=== PATIENT | female | born 1955 | race Caucasian/White ===

== ENCOUNTER → 2021-03-27 | Outpatient (CLI) | payer MEDICARE, OTHER ==
[~2021-03-27] MED LIST: METHACHOLINE KIT (J7674) INH ONE
--- NOTE | 2021-03-27 08:15 | PFTRPT ---
Site: [facility], [address] [place], [address] ID: [id number] Name: JOSIE BONILLA Visit Date: 03/27/2021 Second ID: [id number] Referring Doctor: Monica Carrillo Reviewing Doctor: Cedric Shelby MD Tower Cleaner: Ata POPE RRT Age: 65 : 1955 Sex: Female Race: Height: 61.00 Inches Weight: 201.00 Lbs BSA: 1.89 Order IDs: [id number] Requested Test(s): <RESP-PFT.METH CHAL> Diagnosis: R06.02 of albuterol for post bronchodilator. Review Status: Not Reviewed Pre-Bronch Post-Bronch Pred Actual %Pred Actual %Chng SPIROMETRY FVC (L) 2.74 2.04 74 2.06 1 FEV1 (L) 2.08 1.50 72 1.49 FEV1/FVC (%) 77 74 96 72 -2 FEF 25% (L/sec) 4.50 3.13 69 2.88 -7 FEF 50% (L/sec) 3.43 1.40 40 1.29 -7 FEF 75% (L/sec) 1.05 0.41 39 0.50 21 FEF 25-75% (L/sec) 1.87 1.08 57 1.06 -1 FEF Max (L/sec) 5.41 4.29 79 4.25 FIVC (L) 2.01 2.25 12 FIF 50% (L/sec) 3.46 3.31 95 2.65 -19 FIF Max (L/sec) 3.32 2.65 -20 Expiratory Time (sec) 5.77 6.62 14 Back Extrap Vol (L) 0.06 0.05 -20 Time To FEFmax (sec) 0.073 0.066 -9
== END ==
LOC: M CARPUL 07:25
PROVIDERS: ATTEND Nurse Practitioner Adult Health
DX: R06.02 Shortness of breath (principal)
CPT/HCPCS: 94070; 95070; J7674

== ENCOUNTER → 2021-04-24 | Outpatient (CLI) | payer MEDICARE, OTHER ==
[~2021-04-24] MED LIST changes: +AMLO1TAB24 PO; +ARNU1INH INH; +ATOR1TAB21 PO; +FAMO40TA3 PO; +HYDR-3490 PO; +MAGN400T33 PO; +MELO15TA28 PO; -METHACHOLINE KIT (J7674) INH ONE; +OMEP-173 PO
== END ==
LOC: M LABSMTC 09:40
PROVIDERS: ATTEND Anesthesiology
DX: Z01.812 Encounter for preprocedural laboratory examination (principal); Z20.822 Contact with and (suspected) exposure to COVID-19

== ENCOUNTER 2021-04-29 11:43 | Day surgery (SDC) | payer MEDICARE ==
[~2021-04-29] VITALS: Ht 154.9 cm; Wt 91.2 kg
[~2021-04-29 11:43] MED LIST changes: +NS 1,000 ML IV ONE
[2021-04-29] MEDS ORDERED: propofoL 200 MG/20 ML VIAL As Ordered ONE (12:28)
[2021-04-29] MEDS ORDERED: LIDOCAINE 2% 100MG/5ML SDV (FOR ANES.) As Ordered ONE (12:28)
[2021-04-29] MEDS ORDERED: fentaNYL 100 MCG/2 ML INJECTION (J3010) As Ordered ONE ×2 (12:49→13:11)
[2021-04-29 13:42] VITALS: BP 163/76
== END 2021-04-29 13:46 | disposition home or self-care (01) ==
LOC: M SDC 11:43
PROVIDERS: ATTEND Internal Medicine Gastroenterology
DX: K21.00 Gastro-esophageal reflux disease with esophagitis, without bleeding (principal); K44.9 Diaphragmatic hernia without obstruction or gangrene; K29.70 Gastritis, unspecified, without bleeding; K31.89 Other diseases of stomach and duodenum; R10.13 Epigastric pain; R13.10 Dysphagia, unspecified; I10 Essential (primary) hypertension; Z90.710 Acquired absence of both cervix and uterus; Z88.0 Allergy status to penicillin; Z79.899 Other long term (current) drug therapy
CPT/HCPCS: 43239; 88305; J3010

== ENCOUNTER 2021-05-20 08:35 | Outpatient (RCR) | payer MEDICARE ==
[~2021-05-20 08:35] MED LIST changes: -NS 1,000 ML IV ONE
== END 2021-05-26 ==
LOC: M ST 08:35
PROVIDERS: ATTEND Otolaryngology
DX: R49.0 Dysphonia (principal)

== ENCOUNTER → 2021-05-23 | Outpatient (CLI) | payer MEDICARE ==
[~2021-05-23] MED LIST changes: +E-Z-GAS II EFFERVESCENT PACKET (SODIUM BICARB./CITRIC ACID/SIMETHICONE) As Ordered ONE; +E-Z-HD 98% w/w 340GM SUSP BTL As Ordered ONE; +E-Z-PAQUE 96% w/w SUSP 176GM BTL As Ordered ONE
== END ==
LOC: M RAD 07:26
PROVIDERS: ATTEND Otolaryngology
DX: R49.0 Dysphonia (principal); K21.9 Gastro-esophageal reflux disease without esophagitis; K44.9 Diaphragmatic hernia without obstruction or gangrene

== ENCOUNTER → 2021-06-03 | Outpatient (CLI) | payer MEDICARE ==
[~2021-06-03] MED LIST changes: +BARIUM SULFATE 700 MG TABLET (E-Z-DISK) As Ordered ONE; -E-Z-GAS II EFFERVESCENT PACKET (SODIUM BICARB./CITRIC ACID/SIMETHICONE) As Ordered ONE; -E-Z-HD 98% w/w 340GM SUSP BTL As Ordered ONE; +VARIBAR NECTAR 40% w/v 240ML SUSP BTL As Ordered ONE; +VARIBAR PUDDING 40% w/v 230ML TUBE As Ordered ONE
== END ==
LOC: M RAD 10:19
PROVIDERS: ATTEND Otolaryngology
DX: R13.12 Dysphagia, oropharyngeal phase (principal); R49.9 Unspecified voice and resonance disorder

== ENCOUNTER → 2021-06-05 | Outpatient (CLI) | payer MEDICARE ==
[~2021-06-05] MED LIST changes: -BARIUM SULFATE 700 MG TABLET (E-Z-DISK) As Ordered ONE; -E-Z-PAQUE 96% w/w SUSP 176GM BTL As Ordered ONE; -VARIBAR NECTAR 40% w/v 240ML SUSP BTL As Ordered ONE; -VARIBAR PUDDING 40% w/v 230ML TUBE As Ordered ONE
== END ==
LOC: M RAD 08:10
PROVIDERS: ATTEND Otolaryngology
DX: R49.0 Dysphonia (principal); I65.23 Occlusion and stenosis of bilateral carotid arteries; H74.92 Unspecified disorder of left middle ear and mastoid

== ENCOUNTER 2021-06-25 12:17 | Outpatient (RCR) | payer MEDICARE | END 2021-06-26 | LOC: M ST 12:17 | PROVIDERS: ATTEND Otolaryngology | DX: R49.0 Dysphonia (principal) ==

== ENCOUNTER 2021-07-14 12:50 | Outpatient (RCR) | payer MEDICARE | END 2021-07-26 | LOC: M ST 12:50 | PROVIDERS: ATTEND Otolaryngology | DX: R49.0 Dysphonia (principal) ==

== ENCOUNTER 2022-07-30 22:10 | Inpatient (IN) | payer MEDICARE ==
[~2022-07-30] VITALS: Ht 154.9 cm; Wt 73.2 kg
[2022-07-31] VITALS (14 sets, daily range): BP systolic 98–135; BP diastolic 55–87
[2022-07-31] MEDS ORDERED: NS 500 ML IV ONE (01:00)
[2022-07-31] MEDS ORDERED: NS 1,000 ML IV SCH (01:00)
[2022-07-31 02:39] LABS: ABG BASE EXCESS -2.7 (-2.0-2.0); ABG HCO3 21.6 MMOL/L (22.0-26.0); ABG O2 SATURATION 98.9 % (95.0-99.0); ABG PARTIAL PRESSURE CO2 35.9 mmHg (35.0-45.0); ABG PARTIAL PRESSURE O2 130.9 mmHg (75.0-100.0); ABG STANDARD HCO3 22.3 MMOL/L. (22.0-26.0); ABG TOTAL CO2 22.7 MMOL/L (23.0-31.0); ABG pH (ARTERIAL) 7.398 UNITS (7.350-7.450)
[2022-07-31] MEDS ORDERED: ALBUTEROL SULFATE 2.5MG/0.5ML INH NEB SOLN NEB PRN (02:40)
[2022-07-31] MEDS: ALBUTEROL SULFATE 2.5MG/0.5ML INH NEB SOLN NEB SCH ×6 (03:45→23:12)
[2022-07-31 06:27] LABS: BLOOD UREA NITROGEN 31 MG/DL (9-23); CALCIUM LEVEL 8.2 MG/DL (8.3-10.6); CARBON DIOXIDE LEVEL 23 MMOL/L (20-31); CHLORIDE LEVEL 107 MMOL/L (98-107); CREATININE FOR GFR 0.73 MG/DL (0.55-1.30); GLOMERULAR FILTRATION RATE > 60.0 (>45); GLUCOSE, FASTING 156 MG/DL (74-106); POTASSIUM SERUM 4.1 MMOL/L (3.5-5.1); SODIUM LEVEL 142 MMOL/L (136-145)
[2022-07-31] MEDS: PANTOPRAZOLE 40MG VIAL IV SCH (08:51)
[2022-07-31] MEDS ORDERED: APIXABAN 5 MG TAB (ELIQUIS) PO SCH (09:00)
[2022-07-31] MEDS: ATORVASTATIN 20 MG TAB PEG SCH (09:00)
[2022-07-31] MEDS ORDERED: ATORVASTATIN 20 MG TAB PO SCH (09:00)
[2022-07-31 09:24] LABS: ABG BASE EXCESS -1.1 (-2.0-2.0); ABG O2 SATURATION 93.8 % (95.0-99.0); ABG PARTIAL PRESSURE CO2 36.3 mmHg (35.0-45.0); ABG PARTIAL PRESSURE O2 71.9 mmHg (75.0-100.0); ABG STANDARD HCO3 23.5 MMOL/L. (22.0-26.0); ABG TOTAL CO2 24.1 MMOL/L (23.0-31.0)
[2022-07-31] MEDS ORDERED: NUED20CA PO (10:32)
[2022-07-31] MEDS ORDERED: EDAR105O PO (10:32)
[2022-07-31] MEDS ORDERED: MUPI2OI TOP (10:32)
[2022-07-31] MEDS ORDERED: POTA1TAB23 PO (10:32)
[2022-07-31] MEDS ORDERED: RILU1TAB2 PO (10:32)
[2022-07-31] MEDS ORDERED: NYST1POW9 TOP (10:32)
[2022-07-31] MEDS ORDERED: ELIQ5TAB PO (10:32)
[2022-07-31] MEDS ORDERED: VENTAER INH (10:33)
[2022-07-31] MEDS ORDERED: HOME MED LIST COMPLETE! XX SCH (10:35)
[2022-07-31 11:18] LABS: BASO % 0.1 % (0.0-1.0); EOS % 0.1 % (0.0-3.0); HEMATOCRIT 38.3 % (36.0-47.0); LYMPH # 0.3 10^3/uL (1.5-5.0); LYMPH % 2.4 % (24.0-44.0); MEAN CORPUSCULAR HEMOGLOBIN 33.4 pg (27.0-33.0); MEAN CORPUSCULAR HGB CONC 33.9 g/dl (32.0-36.5); MEAN CORPUSCULAR VOLUME 98.5 fl (80.0-96.0); MONO # 0.3 10^3/uL (0.0-0.8); MONO % 2.9 % (2.0-8.0); NEUTROPHILS # 10.8 10^3/uL (1.5-8.5); NEUTROPHILS % 94.1 % (36.0-66.0); PLATELET COUNT, AUTOMATED 318 10^3/uL (150-450); RED BLOOD COUNT 3.89 10^6/uL (4.00-5.40); WHITE BLOOD COUNT 11.4 10^3/uL (4.0-10.0)
[2022-07-31] MEDS ORDERED: ISOVUE-370 76% 100ML VIAL As Ordered ONE (11:22)
[2022-07-31 11:35] LABS: ABG BASE EXCESS -3.1 (-2.0-2.0); ABG HCO3 21.8 MMOL/L (22.0-26.0); ABG O2 LITER FLOW 100; ABG O2 SATURATION 90.5 % (95.0-99.0); ABG PARTIAL PRESSURE CO2 38.4 mmHg (35.0-45.0); ABG PARTIAL PRESSURE O2 62.5 mmHg (75.0-100.0); ABG STANDARD HCO3 21.8 MMOL/L. (22.0-26.0); ABG pH (ARTERIAL) 7.372 UNITS (7.350-7.450)
[2022-07-31] MEDS ORDERED: AZTREONAM 1 GM in D5W MINI-BAG PLUS 50 ML IV SCH (12:30)
[2022-07-31] MEDS: NYSTATIN 100,000 UNITS/GM TOPICAL PWD 15GM TOP SCH ×2 (13:35→21:16)
[2022-07-31] MEDS: AZTREONAM 2 GM in D5W MINI-BAG PLUS 100 ML IV SCH ×2 (14:30→21:15)
[2022-07-31] MEDS: DOXYCYCLINE HYCLATE 100 MG in D5W MINI-BAG PLUS 100 ML IV SCH (15:32)
[2022-07-31] MEDS: ACETYLCYSTEINE 20% 4 ML VIAL (200MG/ML) INH SCH ×2 (16:54→23:11)
[2022-07-31] MEDS: APIXABAN 5 MG TAB (ELIQUIS) PEG SCH (21:15)
[2022-08-01] VITALS (12 sets, daily range): BP systolic 97–130; BP diastolic 55–84
[2022-08-01] MEDS: DOXYCYCLINE HYCLATE 100 MG in D5W MINI-BAG PLUS 100 ML IV SCH ×2 (02:49→14:36)
[2022-08-01] MEDS: ALBUTEROL SULFATE 2.5MG/0.5ML INH NEB SOLN NEB SCH ×5 (03:06→19:23)
[2022-08-01 04:22] LABS: BASO % 0.1 % (0.0-1.0); HEMATOCRIT 34.8 % (36.0-47.0); HEMOGLOBIN 11.5 g/dl (12.0-15.5); LYMPH # 0.6 10^3/uL (1.5-5.0); LYMPH % 4.6 % (24.0-44.0); MEAN CORPUSCULAR VOLUME 99.7 fl (80.0-96.0); MONO # 1.5 10^3/uL (0.0-0.8); MONO % 10.8 % (2.0-8.0); NEUTROPHILS # 11.3 10^3/uL (1.5-8.5); NEUTROPHILS % 84.1 % (36.0-66.0); PLATELET COUNT, AUTOMATED 236 10^3/uL (150-450); RED BLOOD COUNT 3.49 10^6/uL (4.00-5.40); WHITE BLOOD COUNT 13.4 10^3/uL (4.0-10.0)
[2022-08-01 04:46] LABS: BLOOD UREA NITROGEN 33 MG/DL (9-23); CALCIUM LEVEL 9.1 MG/DL (8.3-10.6); CARBON DIOXIDE LEVEL 27 MMOL/L (20-31); CHLORIDE LEVEL 106 MMOL/L (98-107); CREATININE FOR GFR 0.71 MG/DL (0.55-1.30); GLOMERULAR FILTRATION RATE > 60.0 (>45); GLUCOSE, FASTING 125 MG/DL (74-106); MAGNESIUM LEVEL 1.6 MG/DL (1.8-2.4); POTASSIUM SERUM 3.3 MMOL/L (3.5-5.1); SODIUM LEVEL 141 MMOL/L (136-145)
[2022-08-01] MEDS: MAG SULF 1GM/100ML (MAG RUN) 1 GM in IV 1 EA IV SCH ×2 (05:28→06:16)
[2022-08-01] MEDS: AZTREONAM 2 GM in D5W MINI-BAG PLUS 100 ML IV SCH ×3 (05:28→21:25)
[2022-08-01] MEDS: ACETYLCYSTEINE 20% 4 ML VIAL (200MG/ML) INH SCH ×3 (07:28→15:39)
[2022-08-01] MEDS: KCL 10MEQ/100ML SWI (KRUN) 10 MEQ in IV 1 EA IV SCH ×2 (07:38→08:50)
[2022-08-01] MEDS: PANTOPRAZOLE 40MG VIAL IV SCH (08:49)
[2022-08-01] MEDS: APIXABAN 5 MG TAB (ELIQUIS) PEG SCH ×2 (08:50→20:23)
[2022-08-01] MEDS: ATORVASTATIN 20 MG TAB PEG SCH (08:50)
[2022-08-01] MEDS: NYSTATIN 100,000 UNITS/GM TOPICAL PWD 15GM TOP SCH ×2 (08:50→20:24)
[2022-08-01] MEDS: RILUZOLE 50 MG PEG SCH ×2 (14:36→20:23)
[2022-08-02] VITALS (9 sets, daily range): BP systolic 91–137; BP diastolic 55–79
[2022-08-02] MEDS: ACETYLCYSTEINE 20% 4 ML VIAL (200MG/ML) INH SCH ×2 (00:22→07:27)
[2022-08-02] MEDS: ALBUTEROL SULFATE 2.5MG/0.5ML INH NEB SOLN NEB SCH ×7 (00:22→23:43)
[2022-08-02] MEDS: DOXYCYCLINE HYCLATE 100 MG in D5W MINI-BAG PLUS 100 ML IV SCH ×2 (02:54→14:38)
[2022-08-02 05:36] LABS: BASO % 0.2 % (0.0-1.0); EOS % 0.3 % (0.0-3.0); HEMATOCRIT 32.5 % (36.0-47.0); HEMOGLOBIN 10.5 g/dl (12.0-15.5); LYMPH # 0.6 10^3/uL (1.5-5.0); LYMPH % 6.4 % (24.0-44.0); MEAN CORPUSCULAR HEMOGLOBIN 32.6 pg (27.0-33.0); MEAN CORPUSCULAR HGB CONC 32.3 g/dl (32.0-36.5); MEAN CORPUSCULAR VOLUME 100.9 fl (80.0-96.0); MONO # 1.2 10^3/uL (0.0-0.8); MONO % 11.9 % (2.0-8.0); NEUTROPHILS # 8.1 10^3/uL (1.5-8.5); NEUTROPHILS % 80.8 % (36.0-66.0); PLATELET COUNT, AUTOMATED 234 10^3/uL (150-450); RED BLOOD COUNT 3.22 10^6/uL (4.00-5.40)
[2022-08-02] MEDS: AZTREONAM 2 GM in D5W MINI-BAG PLUS 100 ML IV SCH ×3 (06:15→21:12)
[2022-08-02 06:19] LABS: BLOOD UREA NITROGEN 42 MG/DL (9-23); CALCIUM LEVEL 8.8 MG/DL (8.3-10.6); CARBON DIOXIDE LEVEL 31 MMOL/L (20-31); CHLORIDE LEVEL 105 MMOL/L (98-107); CREATININE FOR GFR 0.63 MG/DL (0.55-1.30); GLOMERULAR FILTRATION RATE > 60.0 (>45); GLUCOSE, FASTING 144 MG/DL (74-106); MAGNESIUM LEVEL 1.7 MG/DL (1.8-2.4); POTASSIUM SERUM 2.8 MMOL/L (3.5-5.1); SODIUM LEVEL 141 MMOL/L (136-145)
[2022-08-02 06:19] LABS: ABG BASE EXCESS -0.3 (-2.0-2.0); ABG HCO3 24.7 MMOL/L (22.0-26.0); ABG O2 SATURATION 99.3 % (95.0-99.0); ABG PARTIAL PRESSURE CO2 41.5 mmHg (35.0-45.0); ABG PARTIAL PRESSURE O2 143.9 mmHg (75.0-100.0); ABG STANDARD HCO3 24.3 MMOL/L. (22.0-26.0); ABG TOTAL CO2 25.9 MMOL/L (23.0-31.0); ABG pH (ARTERIAL) 7.392 UNITS (7.350-7.450)
[2022-08-02] MEDS ORDERED: MAG SULF 1GM/100ML (MAG RUN) 1 GM in IV 1 EA IV ONE (07:00)
[2022-08-02] MEDS: KCL 10MEQ/100ML SWI (KRUN) 10 MEQ in IV 1 EA IV SCH ×4 (07:34→11:14)
[2022-08-02] MEDS: RILUZOLE 50 MG PEG SCH ×2 (08:48→21:13)
[2022-08-02] MEDS: APIXABAN 5 MG TAB (ELIQUIS) PEG SCH ×2 (08:48→21:13)
[2022-08-02] MEDS: PANTOPRAZOLE 40MG VIAL IV SCH (08:48)
[2022-08-02] MEDS: ATORVASTATIN 20 MG TAB PEG SCH (08:48)
[2022-08-02] MEDS: NYSTATIN 100,000 UNITS/GM TOPICAL PWD 15GM TOP SCH ×2 (08:49→21:13)
[2022-08-02] MEDS: SODIUM CHLORIDE HYPERTONIC 3% 15ML NEB SOL INH SCH ×2 (15:32→23:44)
[2022-08-03] VITALS: BP 118/63
[2022-08-03] MEDS: DOXYCYCLINE HYCLATE 100 MG in D5W MINI-BAG PLUS 100 ML IV SCH (02:47)
[2022-08-03] MEDS: ALBUTEROL SULFATE 2.5MG/0.5ML INH NEB SOLN NEB SCH ×3 (03:48→11:17)
[2022-08-03 04:00] VITALS: BP 98/54
[2022-08-03 05:33] LABS: BASO % 0.3 % (0.0-1.0); EOS # 0.1 10^3/uL (0.0-0.5); EOS % 0.9 % (0.0-3.0); HEMATOCRIT 34.6 % (36.0-47.0); HEMOGLOBIN 11.3 g/dl (12.0-15.5); LYMPH # 0.6 10^3/uL (1.5-5.0); LYMPH % 5.5 % (24.0-44.0); MEAN CORPUSCULAR HEMOGLOBIN 32.6 pg (27.0-33.0); MEAN CORPUSCULAR HGB CONC 32.7 g/dl (32.0-36.5); MEAN CORPUSCULAR VOLUME 99.7 fl (80.0-96.0); MONO # 1.1 10^3/uL (0.0-0.8); MONO % 10.6 % (2.0-8.0); NEUTROPHILS # 8.2 10^3/uL (1.5-8.5); NEUTROPHILS % 82.1 % (36.0-66.0); PLATELET COUNT, AUTOMATED 235 10^3/uL (150-450); RED BLOOD COUNT 3.47 10^6/uL (4.00-5.40)
[2022-08-03] MEDS: AZTREONAM 2 GM in D5W MINI-BAG PLUS 100 ML IV SCH (05:33)
[2022-08-03 06:19] LABS: BLOOD UREA NITROGEN 43 MG/DL (9-23); CALCIUM LEVEL 9.1 MG/DL (8.3-10.6); CARBON DIOXIDE LEVEL 32 MMOL/L (20-31); CHLORIDE LEVEL 103 MMOL/L (98-107); CREATININE FOR GFR 0.56 MG/DL (0.55-1.30); GLOMERULAR FILTRATION RATE > 60.0 (>45); GLUCOSE, FASTING 135 MG/DL (74-106); MAGNESIUM LEVEL 1.6 MG/DL (1.8-2.4); POTASSIUM SERUM 3.8 MMOL/L (3.5-5.1); SODIUM LEVEL 140 MMOL/L (136-145)
[2022-08-03] MEDS: SODIUM CHLORIDE HYPERTONIC 3% 15ML NEB SOL INH SCH (07:26)
[2022-08-03 08:00] VITALS: BP 161/82
[2022-08-03] MEDS ORDERED: EDARAVONE PEG SCH (09:00)
[2022-08-03] MEDS: MAG SULF 1GM/100ML (MAG RUN) 1 GM in IV 1 EA IV SCH ×2 (09:17→10:25)
[2022-08-03] MEDS: ATORVASTATIN 20 MG TAB PEG SCH (10:22)
[2022-08-03] MEDS: NYSTATIN 100,000 UNITS/GM TOPICAL PWD 15GM TOP SCH (10:22)
[2022-08-03] MEDS: APIXABAN 5 MG TAB (ELIQUIS) PEG SCH (10:23)
[2022-08-03] MEDS: PANTOPRAZOLE 40MG VIAL IV SCH (10:23)
[2022-08-03] MEDS: RILUZOLE 50 MG PEG SCH (10:23)
[2022-08-03] MEDS ORDERED: LOPERAMIDE 2 MG CAPLET PO ONE (11:00)
[2022-08-03 12:00] VITALS: BP 137/70
[2022-08-03] MEDS ORDERED: MORPHINE 4 MG/ML 1ML VIAL IV ONE (14:35)
[2022-08-03] MEDS ORDERED: LORazepam 2 MG/ML 1ML VIAL IV ONE (14:35)
[2022-08-03] MEDS ORDERED: LORazepam 2 MG/ML 1ML VIAL IV PRN (14:35)
[2022-08-03] MEDS ORDERED: MORPHINE SULF IN 0.9% NACL 100 MG in IV 1 EA IV SCH ×2 (15:00)
[2022-08-03] MEDS ORDERED: SCOPOLAMINE 1MG TRANSDERMAL PATCH TOP PRN (16:25)
== END 2022-08-04 08:45 | disposition expired | DRG 56 ==
LOC: M ICU 07-31 00:22
PROVIDERS: ADMIT Internal Medicine; ATTEND Internal Medicine
DX: G12.21 Amyotrophic lateral sclerosis (principal); J96.21 Acute and chronic respiratory failure with hypoxia; J69.0 Pneumonitis due to inhalation of food and vomit; J15.6 Pneumonia due to other Gram-negative bacteria; J96.22 Acute and chronic respiratory failure with hypercapnia; G93.41 Metabolic encephalopathy; I10 Essential (primary) hypertension; E03.9 Hypothyroidism, unspecified; R13.10 Dysphagia, unspecified; Z93.1 Gastrostomy status; E87.6 Hypokalemia; E83.42 Hypomagnesemia; D64.9 Anemia, unspecified; M54.16 Radiculopathy, lumbar region; R19.7 Diarrhea, unspecified; Z66 Do not resuscitate; K21.9 Gastro-esophageal reflux disease without esophagitis; Z88.0 Allergy status to penicillin; Z79.899 Other long term (current) drug therapy; Z85.41 Personal history of malignant neoplasm of cervix uteri; Z85.43 Personal history of malignant neoplasm of ovary; Z86.718 Personal history of other venous thrombosis and embolism; Z51.5 Encounter for palliative care